=== PATIENT | female | born 1940 | race Caucasian/White ===

== ENCOUNTER 2018-07-21 12:21 | Outpatient (CLI) | payer OTHER ==
[2018-07-24] MEDS ORDERED: COZAAR50 MG PO (15:38)
[2018-07-24] MEDS ORDERED: GABAPENT PO (15:39)
[2018-07-24] MEDS ORDERED: ATORVASTATIN PO (15:39)
[2018-07-24] MEDS ORDERED: ZANTAC PO (15:40)
[2018-07-24] MEDS ORDERED: CLARITIN5 MG PO (15:40)
[2018-07-24] MEDS ORDERED: OSTERA TABLET1 EACH PO (15:41)
[2018-07-24] MEDS ORDERED: TRAMADOL HCL E100 M1 PO (15:41)
[2018-07-24] MEDS ORDERED: CALCIUM 600+D1 EACH PO (15:42)
[2018-07-24] MEDS ORDERED: VASOTEC5 MG PO (16:22)
== END 2018-07-21 12:26 | disposition home or self-care (01) ==
LOC: EKG 12:21
DX: Z01.810 Encounter for preprocedural cardiovascular examination (principal)

== ENCOUNTER 2018-09-08 15:16 | Inpatient (IN) | payer OTHER ==
[~2018-09-08] VITALS: Ht 162.6 cm; Wt 74.8 kg
[~2018-09-08 15:16] MED LIST: ATORVASTATIN PO; CALCIUM 600+D1 EACH PO; CLARITIN5 MG PO; COZAAR50 MG PO; GABAPENT PO; OSTERA TABLET1 EACH PO; TRAMADOL HCL E100 M1 PO; VASOTEC5 MG PO; ZANTAC PO
[2018-09-14] MEDS ORDERED: CEFADROXIL500 MG PO (16:56)
[2018-09-14] MEDS ORDERED: ELIQUIS2.5 MG PO (16:56)
[2018-09-14] MEDS ORDERED: PERCOCET 5-3251 EACH PO (16:56)
== END 2018-09-14 20:02 | DRG 470 ==
LOC: O/R 09-12 06:00 → SURG 09-12 06:00 → SURH 09-12 10:45 → SURG 09-14 20:02
PROVIDERS: ADMIT Orthopaedic Surgery
PROC: 0SRD0JZ Replacement of Left Knee Joint with Synthetic Substitute, Open Approach (ICD-10-PCS; principal; 2018-09-12 10:45)
DX: M17.12 Unilateral primary osteoarthritis, left knee (principal); D62 Acute posthemorrhagic anemia; M81.0 Age-related osteoporosis without current pathological fracture; I10 Essential (primary) hypertension; G62.89 Other specified polyneuropathies

== ENCOUNTER 2020-02-08 08:05 | Outpatient (CLI) | payer OTHER ==
[~2020-02-08 08:05] MED LIST changes: +CEFADROXIL500 MG PO; +ELIQUIS2.5 MG PO; +PERCOCET 5-3251 EACH PO
== END 2020-02-08 08:06 | disposition home or self-care (01) ==
LOC: RX STUDY 08:05
PROVIDERS: ATTEND Internal Medicine Gastroenterology
DX: R13.0 Aphagia (principal)